=== PATIENT | female | born 1945 | race Caucasian/White ===

== ENCOUNTER 2017-04-21 08:13 | Day surgery (SDC) | payer MEDICARE, BC ==
[~2017-04-21 08:13] MED LIST: Acetaminophen TAB* 325 MG PO PRN; Buffered Lidocaine 0.9% SYRIN* 5 ML/SYR SYRINGE INTRADERM ONE
[2017-04-21] MEDS ORDERED: Midazolam* 1 MG/ML 2 ML VIAL (2 MG) ONE ×2 (10:01→10:19)
[2017-04-21] MEDS ORDERED: fentaNYL* 50 MCG/ML 2 ML VIAL (100 MCG VIAL) ONE (10:01)
[2017-04-21 10:55] VITALS: BP 137/65
[2017-04-21] MEDS ORDERED: Neomycin/Polymy/Dex OPHTH.OIN* 3.5 GM ONE (11:54)
[2017-04-21] MEDS ORDERED: Cyclopentolate 1% OPTH.SOL* 2 ML BTL ONE (11:54)
[2017-04-21] MEDS ORDERED: Lidocaine 1% MPF* 2 ML VIAL ONE (11:54)
[2017-04-21] MEDS ORDERED: Phenylephrine 2.5% OPTH.SOL* 2 ML BTL ONE (11:54)
[2017-04-21] MEDS ORDERED: Buffered Lidocaine 0.9% SYRIN* 5 ML/SYR SYRINGE ONE (11:54)
[2017-04-21] MEDS ORDERED: Tropicamide 1% OPTH.SOL* BTL ONE (11:54)
[2017-04-21] MEDS ORDERED: Tetracaine 0.5% OPTH.SOL 4 ML* 1 DROP BTL ONE (11:54)
[2017-04-21] MEDS ORDERED: Flurbiprofen 0.03% OPTH.SOL* 2.5 ML BTL ONE (11:54)
--- NOTE | 2017-04-21 14:49 | OP ---
OPERATIVE REPORT: DATE OF OPERATION: 04/21/17 DATE OF : 47 SURGEON: Dr. Kermit Mistry. DIGITAL CIRCUIT DESIGNER: None. ANESTHESIA: Topical with intravenous sedation. PRE-OP DIAGNOSIS: Cataract, left eye. POST-OP DIAGNOSIS: Cataract, left eye. OPERATIVE PROCEDURE: Phacoemulsification and cataract extraction with posterior chamber intraocular lens implant, left eye. COMPLICATIONS: None. BLOOD LOSS: None. DESCRIPTION OF PROCEDURE: The patient was brought to the operating room and received a small amount of intravenous sedation. A drop of Tetracaine was placed in her left eye. She was prepped and dr ed in the usual sterile fashion for ophthalmic surgery and attention was directed to the left eye where a speculum was placed. A paracentesis was created at the 5 o'clock position and 0.1 cc of 1 p ercent preservative-free Lidocaine was injected into the anterior chamber followed by DisCoVisc. Th e eye was digitally stabilized while a 2.75 mm keratome was used to create a triplanar clear corneal incision at the 3 o'clock position. A continuous curvilinear capsulorrhexis was created with a cys totome and Utrata forceps. BSS on a cannula was used to hydrodissect the lens from the capsule. Pha coemulsification was performed in a lxxusv-aen-npiibfn technique to create four fragments which were removed. Residual cortical material was removed with irrigation and aspiration. DisCoVisc was use d to inflate the capsular bag and an AU00T0 23.5 diopter lens was folded and inserted into the capsu lar bag. DisCoVisc was removed using irrigation and aspiration. BSS on a cannula was used to hydra te the corneal stroma and seal the wound. At the end of the case the pupil was round and the lens w as centered. The eye was of normal pressure and the wound was water tight. The speculum was remove d and topical Maxitrol ointment was placed on the surface of the eye. The eye was closed, patched a nd shielded and the patient was sent to the recovery room in stable condition with post operative in structions and follow-up appointment given. [id number]/[facility] [place]: [id number]
== END 2017-04-21 10:52 | disposition home or self-care (01) ==
LOC: OREAST 08:13
PROVIDERS: ATTEND Ophthalmology
DX: H25.12 Age-related nuclear cataract, left eye (principal); R00.2 Palpitations; M19.90 Unspecified osteoarthritis, unspecified site
CPT/HCPCS: A9270-GY; J2250; J3010

== ENCOUNTER 2017-04-28 06:54 | Day surgery (SDC) | payer MEDICARE, BC ==
[2017-04-28] MEDS ORDERED: fentaNYL* 50 MCG/ML 2 ML VIAL (100 MCG VIAL) ONE (08:16)
[2017-04-28] MEDS ORDERED: Midazolam* 1 MG/ML 2 ML VIAL (2 MG) ONE ×2 (08:17→08:25)
[2017-04-28 08:52] VITALS: BP 131/80
[2017-04-28] MEDS ORDERED: Neomycin/Polymy/Dex OPHTH.OIN* 3.5 GM ONE (14:21)
[2017-04-28] MEDS ORDERED: Flurbiprofen 0.03% OPTH.SOL* 2.5 ML BTL ONE (14:21)
[2017-04-28] MEDS ORDERED: Phenylephrine 2.5% OPTH.SOL* 2 ML BTL ONE (14:21)
[2017-04-28] MEDS ORDERED: Cyclopentolate 1% OPTH.SOL* 2 ML BTL ONE (14:21)
[2017-04-28] MEDS ORDERED: Buffered Lidocaine 0.9% SYRIN* 5 ML/SYR SYRINGE ONE (14:21)
[2017-04-28] MEDS ORDERED: Lidocaine 1% MPF* 2 ML VIAL ONE (14:21)
[2017-04-28] MEDS ORDERED: Tetracaine 0.5% OPTH.SOL 4 ML* 1 DROP BTL ONE (14:21)
[2017-04-28] MEDS ORDERED: Tropicamide 1% OPTH.SOL* BTL ONE (14:21)
--- NOTE | 2017-04-28 17:18 | OP ---
DATE OF OPERATION: 04/28/17 [facility] DATE OF : 47 SURGEON: Dr. Kermit Mistry. THERAPIST: None. ANESTHESIA: Topical with intravenous sedation. PRE-OP DIAGNOSIS: Cataract, right eye. POST-OP DIAGNOSIS: Cataract, right eye. OPERATIVE PROCEDURE: Phacoemulsification and cataract extraction with posterior chamber intraocular lens implant, right eye. COMPLICATIONS: None. BLOOD LOSS: None. DESCRIPTION OF PROCEDURE: The patient was brought to the operating room and received a small amount of intra-venous sedation. A drop of Tetracaine was placed in her right eye. She was prepped and draped in the usual sterile fashion for ophthalmic surgery and attention was directed to the right eye where a speculum was placed. A paracentesis was created at the 11 o'clock position and 0.1 cc of 1 percent preservative-free Lidocaine was injected into the anterior chamber followed by DisCoVisc. The eye was digitally stabilized while a 2.75 mm keratome was used to create a triplanar clear corneal incision at the 9 o'clock position. A continuous curvilinear capsulorrhexis was created with a cystotome and Utrata forceps. BSS on a cannula was used to hydrodissect the lens from the capsule. Phacoemulsification was performed in a divide-and- conquer technique to create four fragments which were removed. Residual cortical material was removed with irrigation and aspiration. DisCoVisc was used to inflate the capsular bag and an AU00T0 23.5 diopter lens was folded and inserted into the capsular bag. DisCoVisc was removed using irrigation and aspiration. BSS on a cannula was used to hydrate the corneal stroma and seal the wound. At the end of the case the pupil was round and the lens was centered. The eye was of normal pressure and the wound was water tight. The speculum was removed and topical Maxitrol ointment was placed on the surface of the eye. The eye was closed, patched and shielded and the patient was sent to the recovery room in stable condition with post operative instructions and follow-up appointment given. [id number]/[facility] #: [id number] [place]
== END 2017-04-28 08:52 | disposition home or self-care (01) ==
LOC: OREAST 06:54
PROVIDERS: ATTEND Ophthalmology
DX: H25.11 Age-related nuclear cataract, right eye (principal); E78.5 Hyperlipidemia, unspecified; R00.2 Palpitations
CPT/HCPCS: A9270-GY; J2250; J3010; V2632

== ENCOUNTER 2018-06-01 07:36 | Day surgery (SDC) | payer MEDICARE, BC ==
[~2018-06-01 07:36] MED LIST changes: -Acetaminophen TAB* 325 MG PO PRN; +Dexamethasone IV* 4 MG/ML 1 ML (4 MG) IV SLOW PU ONE; +Dexamethasone IV* 4 MG/ML 1 ML (4 MG) ONE; +Famotidine IV* 10 MG/ML 2 ML (20 mg) IV ONE; +Famotidine IV* 10 MG/ML 2 ML (20 mg) ONE
[2018-06-01] MEDS ORDERED: Midazolam* 1 MG/ML 2 ML VIAL (2 MG) ONE (08:55)
[2018-06-01] MEDS ORDERED: fentaNYL* 50 MCG/ML 2 ML VIAL (100 MCG VIAL) ONE (08:55)
[2018-06-01] MEDS ORDERED: BSS OPTH.SOL* BTL ONE (09:00)
[2018-06-01] MEDS ORDERED: Tetracaine 0.5% OPTH.SOL 4 ML* 1 DROP BTL ONE (09:00)
[2018-06-01] MEDS ORDERED: Bacitracin OPHTH.OINT* 3.5 GM ONE (09:00)
[2018-06-01] MEDS ORDERED: Lidocain 1% EPI 1:100,000 * 30 ML MDV ONE (09:01)
[2018-06-01] MEDS ORDERED: Povidone Iodine 5% OPTH* 30 ML BTL ONE (09:03)
[2018-06-01] MEDS ORDERED: HYDROcodone/ACETAMIN 5-325 MG* 1 TAB PO PRN (09:06)
[2018-06-01] MEDS ORDERED: DiMENhydriNATE IV* 50 MG/ML VIAL IV PUSH PRN (09:06)
[2018-06-01] MEDS ORDERED: oxyCODONE TAB* 5 MG TAB PO PRN (09:06)
[2018-06-01] MEDS ORDERED: fentaNYL* 50 MCG/ML 2 ML VIAL (100 MCG VIAL) IV PRN (09:06)
[2018-06-01] MEDS ORDERED: Naloxone* 0.4 MG/ML 1 ML VIAL IV PRN (09:06)
[2018-06-01] MEDS ORDERED: Acetaminophen TAB* 325 MG PO PRN (09:06)
[2018-06-01] MEDS ORDERED: Lidocaine 2% PF * 5 ML VIAL ONE (09:14)
[2018-06-01] MEDS ORDERED: Propofol* 10 MG/ML 20 ML BTL IV PUSH ONE (09:14)
[2018-06-01] MEDS ORDERED: Ondansetron INJ* 2 MG/ML VIAL ONE (09:48)
[2018-06-01 10:52] VITALS: BP 116/70
--- NOTE | 2018-06-01 16:17 | OP ---
DATE OF OPERATION: 06/01/18 [facility] DATE OF : 47 SURGEON: Kermit Mistry MD [employer] CHAIR: None. ANESTHESIA: Local MAC. PRE-OP DIAGNOSIS: Bilateral upper lid blepharochalasis. POST-OP DIAGNOSIS: Bilateral upper lid blepharochalasis. OPERATIVE PROCEDURE: Bilateral upper lid blepharoplasty. COMPLICATIONS: None. ESTIMATED BLOOD LOSS: Minimal. OPERATING FINDINGS: The patient was seen preoperatively in the holding area where detailed markings of the upper eyelids were created as a template for the upcoming blepharoplasty. DESCRIPTION OF PROCEDURE: The patient was subsequently brought to the operating room and given a small amount of intravenous sedation. Each upper eyelid received approximately 1 cc of 1% lidocaine with epinephrine. The patient was subsequently prepped and draped in the usual sterile fashion with ophthalmic surgeon. Attention was directed to the right upper lid. A Bovie was used to cut the aforementioned ellipse of marked upper lid skin and orbicularis. This was elevated using a Bovie cutting instrument and removed. Gentle hemostasis as needed was performed with cauterization. A horizontal violation of the septum was created with a Leno scissor, a gentle pressure on the globe revealed protruded fat. The medial and lateral fat pads were clamped, cut and cauterized sequentially. With no active bleeding noted, the skin wound was closed with a running 6-0 gut suture. Attention was then directed to the contralateral eye where exact same procedure was performed. At the end of the case, there appeared to be no active bleeding. The eyelids appeared symmetric. The patient was given a small amount of bacitracin ointment and sent to the recovery room in stable condition. Postoperative instructions and followup appointment were given. [id number]/[facility] #: [id number] [facility]
== END 2018-06-01 10:43 | disposition home or self-care (01) ==
LOC: OREAST 07:36
PROVIDERS: ATTEND Ophthalmology
DX: H02.34 Blepharochalasis left upper eyelid (principal); H02.31 Blepharochalasis right upper eyelid; E78.00 Pure hypercholesterolemia, unspecified
CPT/HCPCS: 88300; A9270-GY; J1100; J2250; J2405; J2704; J3010